=== PATIENT | female | born 1965 | race Caucasian/White ===

== ENCOUNTER 2018-01-27 19:38 | Emergency (ER) | payer OTHER ==
--- NOTE | 2018-01-27 20:04 | EDM.PDOC ---
ED HPI GENERAL MEDICAL PROBLEM - General Chief Complaint: General Stated Complaint: BLOOD WORK INFECTION Time Seen by Provider: 01/27/18 20:04 Source of Information: Reports: Patient History Limitations: Reports: No Limitations - History of Present Illness INITIAL COMMENTS - FREE TEXT/NARRATIVE: HISTORY AND PHYSICAL: []52-year-old female presenting with possible infection History of Present Illness: [] history of right-sided breast cancer 6 weeks ago underwent double mastectomy 11 days ago patient underwent beverley dissection. Air implants were placed to inflate the area for breast implants. 2 days ago noticed redness both breasts on the lateral portion superior of the suture line Her surgeon is from [facility] she did contact him today he requested a white blood count. Patient has a port on the left upper chest. She does state this has never been utilized. Review of Systems: As per history of present illness and below otherwise all systems reviewed and negative. Past medical history: As per history of present illness and as reviewed below otherwise noncontributory. Surgical history: As per history of present illness and as reviewed below otherwise noncontributory. Social history: No reported history of drug or alcohol abuse. Family history: As per history of present illness and as reviewed below otherwise noncontributory. Physical exam: Learning oriented female answering questions appropriately in full sentences without any shortness of breath. She is nontoxic in appearance. HEENT: Atraumatic, normocehpalic, pupils reactive, negative for conjunctival pallor or scleral icterus, mucous membranes moist, throat clear, neck supple, nontender, trachea midline. Lungs: Clear to auscultation, breath sounds equal bilaterally, chest non tender. Bilateral suture lines are clear laterally each area of breast tissue has erythema centimeters in diameter on the right 3 cm in diameter on the left. Heat is radiating. Mildly tender on palpation. Heart: S1S2, regular, negative for clicks, rubs, or JVD. Abdomen: Soft, nondistended, nontender. Negative for masses or hepatossplenmegaly. Negative for costovertebral tenderness. Pelvis: Stable nontender. Genitourinary: Deferred. Rectal: Deferred Extremities: Atraumatic, negative for cords or calf pain. Neurovascular unremarkable. Neuro: Awake, alert, oriented. Cranial nerves II through XII unremarkable. Cerebellum unremarkable. Motor and sensory unremarkable throughout. Exam nonfocal. Dr. Mendez has kindly reexamine this patient and is in agreement. Dr. Bergman was notified and is accepted the patient should they decide to travel to [place]. Have discussed with the patient and her opportunity to have IV antibiotics here in [place]. They adamantly declined this opportunity and wished to be treated with their surgeon in [place] Have discussed this case with Dr. [facility]uga [facility] No antibiotics have been given prior to transfer. Diagnostics: []CBC CMP blood cultures 2 Therapeutics: [] Impression: []Cellulitis bilateral breasts Plan: []Discharge Transfer per private vehicle to [facility] to present to the ER. Definitive disposition and diagnosis as appropriate pending reevaluation and review of above. Onset: Gradual Duration: Day(s): Location: Reports: Chest Quality: Reports: Ache Severity: Mild Improves with: Reports: None Worsens with: Reports: None Associated Symptoms: Reports: No Other Symptoms - Related Data Allergies Allergy/AdvReac Type Severity Reaction Status Date / Time No Known Allergies Allergy Verified 01/27/18 20:05 Home Meds: Home Meds Cetirizine [ZyrTEC] 10 mg PO DAILY 01/27/18 [History] buPROPion [buPROPion XL] 150 mg PO BEDTIME 01/27/18 [History] ED ROS GENERAL - Review of Systems Review Of Systems: ROS reveals no pertinent complaints other than HPI. ED EXAM, GENERAL - Physical Exam Exam: See Below (see dictation) Course - Vital Signs Last Recorded V/S: Last Vital Signs Temp 36.8 C 01/27/18 20:01 Pulse 68 01/27/18 20:01 Resp 12 01/27/18 20:01 BP 142/82 H 01/27/18 20:01 Pulse Ox 98 01/27/18 20:01 - Orders/Labs/Meds Orders: Active Orders 24 hr Category Date Time Status CULTURE BLOOD [BC] Stat Lab 01/27/18 20:23 Received CULTURE BLOOD [BC] Stat Lab 01/27/18 20:23 Received Blood Culture x2 Reflex Set [OM.PC] Stat Oth 01/27/18 20:13 Ordered Labs: Laboratory Tests 01/27/18 01/27/18 01/27/18 Range/Units 20:23 20:23 20:23 WBC 14.56 H (4.0-11.0) K/uL RBC 4.27 L (4.30-5.90) M/uL Hgb 12.6 (12.0-16.0) g/dL Hct 39.1 (36.0-46.0) % MCV 91.6 (80.0-98.0) fL MCH 29.5 (27.0-32.0) pg MCHC 32.2 (31.0-37.0) g/dL RDW Std Deviation 40.0 (28.0-62.0) fl RDW Coeff of Stevan 12 (11.0-15.0) % Plt Count 341 (150-400) K/uL MPV 11.10 (7.40-12.00) fL Neut % (Auto) 56.8 (48.0-80.0) % Lymph % (Auto) 32.8 (16.0-40.0) % Early % (Auto) 6.9 (0.0-15.0) % Eos % (Auto) 3.2 (0.0-7.0) % Baso % (Auto) 0.3 (0.0-1.5) % Neut # (Auto) 8.3 H (1.4-5.7) K/uL Lymph # (Auto) 4.8 H (0.6-2.4) K/uL Early # (Auto) 1.0 H (0.0-0.8) K/uL Eos # (Auto) 0.5 (0.0-0.7) K/uL Baso # (Auto) 0.1 (0.0-0.1) K/uL Nucleated RBC % 0.0 /100WBC Nucleated RBCs # 0 K/uL Lactate 1.0 (0.20-2.00) mmol/L Sodium 138 (136-145) mmol/L Potassium 3.9 (3.5-5.1) mmol/L Chloride 103 (98-107) mmol/L Carbon Dioxide 28.8 (21.0-32.0) mmol/L BUN 15 (7.0-18.0) mg/dL Creatinine 1.0 (0.6-1.0) mg/dL Est Cr Clr Drug Dosing 65.19 mL/min Estimated GFR (MDRD) 58.2 ml/min Glucose 110 H (74-106) mg/dL Calcium 9.4 (8.5-10.1) mg/dL Total Bilirubin 0.2 (0.2-1.0) mg/dL AST 12 L (15-37) IU/L ALT 14 (14-63) IU/L Alkaline Phosphatase 124 H (46-116) U/L Total Protein 8.5 H (6.4-8.2) g/dL Albumin 3.5 (3.4-5.0) g/dL Globulin 5.0 H (2.0-3.5) g/dL Albumin/Globulin Ratio 0.7 L (1.3-2.8) Meds: Medications Discontinued Medications Generic Name Dose Route Start Last Admin Trade Name Freq PRN Reason Stop Dose Admin Sodium Chloride 10 ml 01/27/18 20:13 Saline Flush FLUSH ASDIRECTED PRN Keep Vein Open Sodium Chloride 2.5 ml 01/27/18 20:13 Saline Flush FLUSH ASDIRECTED PRN Keep Vein Open Departure - Departure Time of Disposition: 21:13 Disposition: DC/Tfer to Acute Hospital 02 Condition: Good Clinical Impression: Cellulitis Qualifiers: Site of cellulitis: trunk Site of cellulitis of trunk: chest wall Qualified Code(s): L03.313 - Cellulitis of chest wall - Discharge Information *PRESCRIPTION DRUG MONITORING PROGRAM REVIEWED*: Not Applicable *COPY OF PRESCRIPTION DRUG MONITORING REPORT IN PATIENT DWIGHT: Not Applicable Instructions: Cellulitis, Adult, [id number] Referrals: Mitesh Rivera MD [Primary Care Provider] - Forms: ED Department Discharge Additional Instructions: The following information is given to patients seen in the emergency department who are being discharged to home. This information is to outline your options for follow-up care. We provide all patients seen in our emergency department with a follow-up referral. The need for follow-up, as well as the timing and circumstances, are variable depending upon the specifics of your emergency department visit. If you don't have a primary care physician on staff, we will provide you with a referral. We always advise you to contact your personal physician following an emergency department visit to inform them of the circumstance of the visit and for follow-up with them and/or the need for any referrals to a consulting specialist. The emergency department will also refer you to a specialist when appropriate. This referral assures that you have the opportunity for followup care with a specialist. All of these measure are taken in an effort to provide you with optimal care, which includes your followup. Under all circumstances we always encourage you to contact your private physician who remains a resource for coordinating your care. When calling for followup care, please make the office aware that this follow-up is from your recent emergency room visit. If for any reason you are refused follow-up, please contact the [facility] emergency department at and asked to speak to the emergency department charge nurse. Discharge Transfer per private vehicle to [facility] to present to the ER. - My Orders Last 24 Hours: My Active Orders 01/27/18 20:13 Blood Culture x2 Reflex Set [OM.PC] Stat 01/27/18 20:23 CULTURE BLOOD [BC] Stat CULTURE BLOOD [BC] Stat - Assessment/Plan Last 24 Hours: My Active Orders 01/27/18 20:13 Blood Culture x2 Reflex Set [OM.PC] Stat 01/27/18 20:23 CULTURE BLOOD [BC] Stat CULTURE BLOOD [BC] Stat
[2018-01-27] MEDS ORDERED: Sodium Chloride 0.9% 10 ML Syringe FLUSH PRN (20:13)
[2018-01-27] MEDS ORDERED: Sodium Chloride 0.9% 2.5 ML Syringe FLUSH PRN (20:13)
[2018-01-27 21:15] VITALS: BP 154/88
== END 2018-01-27 21:25 ==
LOC: MW.ED 19:38
DX: L03.313 Cellulitis of chest wall (principal); N61.0 Mastitis without abscess
CPT/HCPCS: 36415; 80053; 83605; 85025; 87040; 99284